=== PATIENT | female | born 1995 | race African-American/Black ===

== ENCOUNTER 2025-04-23 20:22 | Emergency (ER) | payer BC ==
[2025-04-23] MEDS: ACETAMINOPHEN 500MG TABLET PO ONE (21:54)
[2025-04-23 23:54] LABS: INFLUENZA TYPE A Presumptive Negative (Pres. Neg.)
[2025-04-23 23:55] LABS: INFLUENZA TYPE B Presumptive Negative (Pres. Neg.)
[2025-04-24] MEDS ORDERED: GUAI600T26 MT (00:47)
[2025-04-24] MEDS ORDERED: BENZ100C86 MT (00:47)
[2025-04-24] MEDS ORDERED: METH4TAB95 MT (00:47)
[2025-04-24 01:08] VITALS: BP 120/82; PULSE 80; RESP 18; TEMP 36.7; O2SAT 100
[2025-04-24] MEDS ORDERED: OFLO5DRO LEFTEYE (01:09)
== END 2025-04-24 01:26 | disposition home or self-care (01) ==
LOC: ER 20:22
DX: B34.9 Viral infection, unspecified (principal); Z79.899 Other long term (current) drug therapy
CPT/HCPCS: 71045; 87070; 87430; 87804; 99284